=== PATIENT | female | born 1935 | race Caucasian/White ===

== ENCOUNTER 2018-06-13 15:05 | Inpatient (IN) | payer MEDICARE, OTHER ==
[~2018-06-13 15:05] MED LIST: BUPIVACAINE 0.5% (SDV) 30 ML INJ; EPHEDrine SULFATE 50 MG/5 ML SYG; GLYCOPYRROLATE 0.4 MG INJ; NEOSTIGMINE 3 MG/3 ML SYRINGE
[2018-06-13 15:31] LABS: ADD MAN DIFF? NO
[2018-06-13 15:34] LABS: BASOPHILS % 0.4 % (0.0-2.0); EOSINOPHILS # 0.1 10^3/ul (0.0-0.5); EOSINOPHILS % 1.1 % (0.0-7.0); HEMATOCRIT 44.2 % (37.0-47.0); HEMOGLOBIN 15.2 g/dl (12.0-16.0); LYMPHOCYTES # 1.9 10^3/ul (0.8-2.9); LYMPHOCYTES % 33.3 % (15.0-51.0); MEAN CORPUSCULAR HGB CONC 34.4 g/dl (32.0-37.0); MEAN CORPUSCULAR VOLUME 93.1 fl (82.0-101.0); MEAN PLATELET VOLUME 11.5 fl (7.4-10.4); MONOCYTE # 0.3 10^3/ul (0.3-0.9); MONOCYTES % 5.3 % (0.0-11.0); NEUTROPHIL # 3.4 10^3/ul (1.6-7.5); NEUTROPHILS % 59.7 % (39.0-77.0); PLATELET COUNT 148 10^3/UL (140-415); RED BLOOD COUNT 4.75 10^6/ul (4.20-5.40)
[2018-06-13 15:34] LABS: WHITE BLOOD COUNT 5.6 10^3/ul (4.8-10.8)
[2018-06-13] MEDS: KETOROLAC 30 MG INJ IV (15:49)
[2018-06-13] MEDS: ONDANSETRON 4 MG INJ IV (15:49)
[2018-06-13 15:54] LABS: ALANINE AMINOTRANSFERASE 18 IU/L (13-69); ALBUMIN 3.9 g/dl (3.3-4.9); ALBUMIN/GLOBULIN RATIO 1.25; ALKALINE PHOSPHATASE 62 IU/L (42-121); ANION GAP 9 (5-13); ASPARTATE AMINO TRANSFERASE 39 IU/L (15-46); BILIRUBIN,INDIRECT 0.4 mg/dl (0-1.1); BILIRUBIN,TOTAL 0.4 mg/dl (0.2-1.3); BLOOD UREA NITROGEN 21 mg/dl (7-20); CALCIUM 9.2 mg/dl (8.4-10.2); CARBON DIOXIDE 23 mmol/L (21-31); CHLORIDE 104 mmol/L (97-110); CREATININE 0.76 mg/dl (0.44-1.00); GLUCOSE 119 mg/dl (70-220); LIPASE 142 U/L (23-300); POTASSIUM 3.9 mmol/L (3.5-5.1); SODIUM 136 mmol/L (135-144)
[2018-06-13] MEDS ORDERED: morphine 4 MG/ML VIAL (16:14)
[2018-06-13] MEDS: morphine 4 MG/ML VIAL IV ×2 (16:50→17:03)
[2018-06-13] MEDS: SODIUM CHLORIDE 0.9% 1L BAG IV* (17:04)
[2018-06-13] MEDS: PIPER-TAZO 3.375 GM IV (PMX) 100 ML IVPB (17:04)
[2018-06-13] MEDS: DEXTROSE 5%-0.45% NACL 1,000 ML IV (17:20)
[2018-06-13] MEDS ORDERED: NACL 0.9% 3 ML SYG IV (17:30)
[2018-06-13] MEDS ORDERED: morphine 2 MG INJ IV (17:30)
[2018-06-13] MEDS ORDERED: ONDANSETRON 4 MG INJ IV ×3 (17:30→22:00)
[2018-06-13 17:37] LABS: LACTIC ACID 1.6 mmol/L (0.5-2.0)
[2018-06-13] MEDS: PANTOPRAZOLE 40 MG INJ IV (18:00)
[2018-06-13] MEDS: METOPROLOL 5 MG INJ IV (18:00)
[2018-06-13] MEDS ORDERED: ROCURONIUM 50 MG INJ (19:14)
[2018-06-13] MEDS ORDERED: ONDANSETRON 4 MG INJ (19:14)
[2018-06-13] MEDS ORDERED: PROPOFOL 20 ML (19:14)
[2018-06-13] MEDS ORDERED: FENTAnyl 50 MCG/ML VIAL (19:14)
[2018-06-13] MEDS ORDERED: METOCLOPRAMIDE 10 MG INJ (19:14)
[2018-06-13] MEDS ORDERED: BUPIVACAINE 0.25% (MPF) 30 ML INJ (19:15)
[2018-06-13] MEDS ORDERED: ROPIVACAINE 0.5 % 30 ML VIAL (19:15)
[2018-06-13] MEDS ORDERED: DIPHENHYDRAMINE 50 MG INJ IV (19:30)
[2018-06-13] MEDS ORDERED: HYDROmorphONE 1 MG/5 ML IV SYRINGE IV ×3 (19:30)
[2018-06-13] MEDS ORDERED: MEPERIDINE 25 MG INJ IV (19:30)
[2018-06-13] MEDS ORDERED: PHENYLephrine (100 MCG/ML) 5ML SYG ×2 (19:42→21:16)
[2018-06-13] MEDS ORDERED: PIPER-TAZO 3.375 GM IV (PMX) 100 ML IVPB (22:00)
[2018-06-13 22:24] LABS: ADD UMIC YES; UR ASCORBIC ACID NEGATIVE (NEGATIVE); UR BACTERIA FEW /HPF (NONE SEEN); UR BILIRUBIN (Dip) NEGATIVE (NEGATIVE); UR BLOOD (Dip) 2+ mg/dL (NEGATIVE); UR CLARITY CLOUDY (CLEAR); UR COLOR YELLOW (YELLOW); UR GLUCOSE (Dip) NEGATIVE (NEGATIVE); UR KETONES (Dip) NEGATIVE (NEGATIVE); UR LEUKOCYTE ESTERASE (Dip) NEGATIVE Leu/ul (NEGATIVE); UR NITRITE (Dip) NEGATIVE (NEGATIVE); UR RBC 11 /HPF (0-5); UR SPECIFIC GRAVITY (Dip) 1.012 (1.003-1.030); UR TOTAL PROTEIN (Dip) 1+ mg/dl (NEGATIVE); UR UROBILINOGEN (Dip) NEGATIVE (NEGATIVE); UR WBC 5 /HPF (0-5)
[2018-06-13] MEDS: AMPICILLIN/SULB 3 GM/NS (PMX) 100 ML IVPB (23:52)
[2018-06-13] MEDS: D5W-0.45 NACL + KCL 20 MEQ 1,000 ML IV (23:52)
[2018-06-14 01:44] LABS: LACTIC ACID 4.4 mmol/L (0.5-2.0)
[2018-06-14] MEDS: SOD CHLORIDE 0.9% 1,000 ML IV ×2 (02:28→08:02)
[2018-06-14] MEDS: PANTOPRAZOLE 40 MG INJ IV (05:21)
[2018-06-14] MEDS: AMPICILLIN/SULB 3 GM/NS (PMX) 100 ML IVPB ×3 (05:21→16:10)
[2018-06-14] MEDS: LEVOTHYROXINE 75 MCG TAB PO (06:00)
[2018-06-14] MEDS: METOPROLOL 5 MG INJ IV ×4 (06:00→17:25)
[2018-06-14 06:01] LABS: WHITE BLOOD COUNT 6.9 10^3/ul (4.8-10.8)
[2018-06-14 06:01] LABS: ABNORMAL IP MESSAGE 1; HEMATOCRIT 37.2 % (37.0-47.0); HEMOGLOBIN 12.5 g/dl (12.0-16.0); MEAN CORPUSCULAR HEMOGLOBIN 32.2 pg (29.0-33.0); MEAN CORPUSCULAR HGB CONC 33.6 g/dl (32.0-37.0); MEAN CORPUSCULAR VOLUME 95.9 fl (82.0-101.0); PLATELET COUNT 116 10^3/UL (140-415); RED BLOOD COUNT 3.88 10^6/ul (4.20-5.40); RED CELL DISTRIBUTION WIDTH 14.4 % (11.5-14.5)
[2018-06-14 06:27] LABS: ADD MAN DIFF? YES; POSITIVE DIFF @See below
[2018-06-14 06:50] LABS: LACTIC ACID 4.7 mmol/L (0.5-2.0)
[2018-06-14 07:31] LABS: ANION GAP 11 (5-13); BLOOD UREA NITROGEN 17 mg/dl (7-20); CALCIUM 7.6 mg/dl (8.4-10.2); CARBON DIOXIDE 18 mmol/L (21-31); CHLORIDE 109 mmol/L (97-110); CREATININE 0.73 mg/dl (0.44-1.00); GLUCOSE 132 mg/dl (70-220); MAGNESIUM 1.2 mg/dl (1.7-2.5); POTASSIUM 4.1 mmol/L (3.5-5.1); SODIUM 138 mmol/L (135-144)
[2018-06-14] MEDS: D5W-0.45 NACL + KCL 20 MEQ 1,000 ML IV ×3 (07:36→16:10)
[2018-06-14 07:42] LABS: BAND NEUTROPHILS #M 2.5 10^3/ul (0.0-0.6); BAND NEUTROPHILS % (M) 37 % (0-4); BURR CELLS 1+ (0-0); GIANT THROMBO% (M) 1 % (0-0); LYMPHOCYTES #M 0.9 10^3/ul (0.8-2.9); LYMPHOCYTES % (M) 14 % (15-51); METAMYELOCYTES #M 0.2 10^3/ul (0.0-0.0); METAMYELOCYTES %M 4 % (0-0); MONOCYTE #M 0.7 10^3/ul (0.3-0.9); MONOCYTES % (M) 11 % (0-11); PLASMAC%(M) 1 % (0); PLATELET ESTIMATE DECREASED; SEG NEUT #M 2.4 10^3/ul (1.6-7.5); SEGMENTED NEUTROPHILS (M) % 33 % (39-77); SMUDGE%M 27 % (0-0)
[2018-06-14] MEDS: FAMOTIDINE 20 MG INJ IV ×2 (08:02→20:11)
[2018-06-14] MEDS ORDERED: VITAMIN A & D 5 GM OINT PACKET TOP (10:14)
[2018-06-14] MEDS: MAGNESIUM SULFATE 4 GM/100 ML 100 ML IVPB (10:15)
[2018-06-14 10:26] LABS: LACTIC ACID 3.4 mmol/L (0.5-2.0)
[2018-06-14] MEDS: VITAMIN A & D 5 GM OINT PACKET TOP ×2 (10:33→20:16)
[2018-06-14] MEDS: HYDROmorphONE 0.5 MG/0.5 ML SYG IV (12:28)
[2018-06-14] MEDS: PHENOL 1.4% SOLN 180 ML BTL MT ×2 (12:36→14:47)
[2018-06-14 15:29] LABS: LACTIC ACID 2.7 mmol/L (0.5-2.0)
[2018-06-14] MEDS: ACETAMINOPHEN 650 MG SUPP PR (19:28)
[2018-06-14] MEDS: LORAZEPAM 2 MG INJ IV (19:50)
[2018-06-14 21:45] LABS: LACTIC ACID 2.4 mmol/L (0.5-2.0)
[2018-06-14] MEDS: SOD CHLORIDE 0.9% 500 ML IV (23:55)
[2018-06-15] MEDS: METOPROLOL 5 MG INJ IV ×4 (00:22→18:41)
[2018-06-15] MEDS: D5W-0.45 NACL + KCL 20 MEQ 1,000 ML IV (00:23)
[2018-06-15] MEDS: PANTOPRAZOLE 40 MG INJ IV ×2 (05:18→21:07)
[2018-06-15] MEDS: LEVOTHYROXINE 75 MCG TAB PO (05:24)
[2018-06-15 05:50] LABS: ABNORMAL IP MESSAGE 1; HEMATOCRIT 35.6 % (37.0-47.0); HEMOGLOBIN 12.3 g/dl (12.0-16.0); MEAN CORPUSCULAR HEMOGLOBIN 32.6 pg (29.0-33.0); MEAN CORPUSCULAR HGB CONC 34.6 g/dl (32.0-37.0); MEAN CORPUSCULAR VOLUME 94.4 fl (82.0-101.0); MEAN PLATELET VOLUME 12.4 fl (7.4-10.4); PLATELET COUNT 99 10^3/UL (140-415); RED BLOOD COUNT 3.77 10^6/ul (4.20-5.40); RED CELL DISTRIBUTION WIDTH 14.8 % (11.5-14.5)
[2018-06-15 05:50] LABS: WHITE BLOOD COUNT 15.6 10^3/ul (4.8-10.8)
[2018-06-15 05:57] LABS: ADD MAN DIFF? YES; POSITIVE DIFF @See below
[2018-06-15 06:16] LABS: LACTIC ACID 1.7 mmol/L (0.5-2.0)
[2018-06-15 06:34] LABS: ALBUMIN 2.6 g/dl (3.3-4.9); ANION GAP 3 (5-13); BLOOD UREA NITROGEN 20 mg/dl (7-20); CALCIUM 7.8 mg/dl (8.4-10.2); CARBON DIOXIDE 23 mmol/L (21-31); CHLORIDE 112 mmol/L (97-110); CREATININE 0.72 mg/dl (0.44-1.00); GLUCOSE 111 mg/dl (70-220); MAGNESIUM 2.6 mg/dl (1.7-2.5); PHOSPHORUS 2.5 mg/dl (2.5-4.9); POTASSIUM 3.7 mmol/L (3.5-5.1); SODIUM 138 mmol/L (135-144)
[2018-06-15] MEDS: FAMOTIDINE 20 MG INJ IV ×2 (08:57→21:07)
[2018-06-15] MEDS: VITAMIN A & D 5 GM OINT PACKET TOP ×2 (08:57→21:09)
[2018-06-15 09:06] LABS: BAND NEUTROPHILS #M 4.5 10^3/ul (0.0-0.6); BAND NEUTROPHILS % (M) 29 % (0-4); BURR CELLS 1+ (0-0); GIANT THROMBO% (M) 10 % (0-0); LYMPHOCYTES #M 2.1 10^3/ul (0.8-2.9); LYMPHOCYTES % (M) 14 % (15-51); MONOCYTE #M 0.4 10^3/ul (0.3-0.9); MONOCYTES % (M) 3 % (0-11); PLATELET ESTIMATE DECREASED; POIKILOCYTOSIS 2+ (0-0); REACTIVE LYMPHOCYTES #M 0.1 10^3/ul (0.0-0.0); REACTIVE LYMPHOCYTES% (M) 1 % (0-0); SEGMENTED NEUTROPHILS (M) % 53 % (39-77); SMUDGE%M 17 % (0-0)
[2018-06-15] MEDS: PHENOL 1.4% SOLN 180 ML BTL MT (10:08)
[2018-06-15] MEDS: DEXTROSE 5%-0.45% NACL 1,000 ML IV ×2 (11:21→21:07)
[2018-06-15] MEDS: PIPER-TAZO 3.375 GM IV (PMX) 100 ML IVPB ×4 (11:26→22:00)
[2018-06-15] MEDS ORDERED: LORAZEPAM 2 MG INJ IV (11:30)
[2018-06-15] MEDS ORDERED: PIPER-TAZO 3.375 GM IV (PMX) 100 ML IVPB (12:00)
[2018-06-15] MEDS: LEVOTHYROXINE 100 MCG VIAL IV (12:29)
[2018-06-15] MEDS: SUCRALFATE (100 MG/ML) 10ML CUP PO ×3 (14:00→21:09)
[2018-06-15 17:25] LABS: ADD UMIC YES; UR ASCORBIC ACID NEGATIVE (NEGATIVE); UR BACTERIA FEW /HPF (NONE SEEN); UR BILIRUBIN (Dip) NEGATIVE (NEGATIVE); UR BLOOD (Dip) 2+ mg/dL (NEGATIVE); UR CLARITY SLIGHTLY CLOUDY (CLEAR); UR COLOR YELLOW (YELLOW); UR GLUCOSE (Dip) NEGATIVE (NEGATIVE); UR KETONES (Dip) NEGATIVE (NEGATIVE); UR LEUKOCYTE ESTERASE (Dip) NEGATIVE Leu/ul (NEGATIVE); UR MUCUS FEW /HPF (NONE SEEN); UR NITRITE (Dip) NEGATIVE (NEGATIVE); UR RBC 1 /HPF (0-5); UR SPECIFIC GRAVITY (Dip) 1.018 (1.003-1.030); UR TOTAL PROTEIN (Dip) NEGATIVE (NEGATIVE); UR UROBILINOGEN (Dip) NEGATIVE (NEGATIVE); UR WBC 1 /HPF (0-5)
[2018-06-15] MEDS: ACETAMINOPHEN 650 MG SUPP PR (21:09)
[2018-06-15] MEDS: OLANZAPINE 10 MG VIAL IM (21:20)
[2018-06-16] MEDS: METOPROLOL 5 MG INJ IV ×4 (00:57→17:46)
[2018-06-16] MEDS ORDERED: HALOPERIDOL 5 MG INJ (02:20)
[2018-06-16] MEDS: HALOPERIDOL 5 MG INJ IM ×2 (02:47→23:30)
[2018-06-16] MEDS: LORAZEPAM 2 MG INJ IV ×2 (03:13→17:46)
[2018-06-16] MEDS: IPRATROPIUM (NEB) 0.5 MG/2.5 ML AMP HHN (04:12)
[2018-06-16] MEDS: LEVALBUTEROL (NEB) 0.63 MG/3 ML AMP HHN (04:12)
[2018-06-16] MEDS: FUROSEMIDE 20 MG INJ IV ×2 (05:07→17:46)
[2018-06-16] MEDS: PIPER-TAZO 3.375 GM IV (PMX) 100 ML IVPB ×3 (06:23→22:31)
[2018-06-16] MEDS: LEVOTHYROXINE 100 MCG VIAL IV (06:23)
[2018-06-16] MEDS: DEXTROSE 5%-0.45% NACL 1,000 ML IV ×2 (06:50→18:34)
[2018-06-16 09:09] LABS: WHITE BLOOD COUNT 16.4 10^3/ul (4.8-10.8)
[2018-06-16 09:09] LABS: HEMATOCRIT 32.6 % (37.0-47.0); HEMOGLOBIN 11.5 g/dl (12.0-16.0); MEAN CORPUSCULAR HEMOGLOBIN 32.4 pg (29.0-33.0); MEAN CORPUSCULAR HGB CONC 35.3 g/dl (32.0-37.0); MEAN CORPUSCULAR VOLUME 91.8 fl (82.0-101.0); MEAN PLATELET VOLUME 12.4 fl (7.4-10.4); PLATELET COUNT 100 10^3/UL (140-415); RED BLOOD COUNT 3.55 10^6/ul (4.20-5.40); RED CELL DISTRIBUTION WIDTH 14.3 % (11.5-14.5)
[2018-06-16 09:11] LABS: POSITIVE DIFF @See below
[2018-06-16 09:50] LABS: ANION GAP 9 (5-13); BLOOD UREA NITROGEN 12 mg/dl (7-20); CALCIUM 8.3 mg/dl (8.4-10.2); CARBON DIOXIDE 25 mmol/L (21-31); CHLORIDE 105 mmol/L (97-110); GLUCOSE 88 mg/dl (70-220); MAGNESIUM 1.8 mg/dl (1.7-2.5); PHOSPHORUS 1.3 mg/dl (2.5-4.9); SODIUM 139 mmol/L (135-144)
[2018-06-16 10:04] LABS: POTASSIUM 2.8 mmol/L (3.5-5.1)
[2018-06-16 10:09] LABS: ADD MAN DIFF? YES
[2018-06-16 10:10] LABS: BAND NEUTROPHILS #M 5.7 10^3/ul (0.0-0.6); BAND NEUTROPHILS % (M) 35 % (0-4); LYMPHOCYTES #M 0.4 10^3/ul (0.8-2.9); LYMPHOCYTES % (M) 3 % (15-51); MONOCYTE #M 0.4 10^3/ul (0.3-0.9); MONOCYTES % (M) 3 % (0-11); PLATELET ESTIMATE DECREASED; REACTIVE LYMPHOCYTES #M 0.4 10^3/ul (0.0-0.0); REACTIVE LYMPHOCYTES% (M) 3 % (0-0); SEG NEUT #M 10.1 10^3/ul (1.6-7.5); SEGMENTED NEUTROPHILS (M) % 56 % (39-77); SMUDGE%M 6 % (0-0)
[2018-06-16] MEDS: PANTOPRAZOLE 40 MG INJ IV ×2 (10:49→20:36)
[2018-06-16] MEDS: FAMOTIDINE 20 MG INJ IV ×2 (10:49→20:36)
[2018-06-16] MEDS: SUCRALFATE (100 MG/ML) 10ML CUP PO ×4 (10:54→20:36)
[2018-06-16 10:55] LABS: B-TYPE NATRIURETIC PEPTIDE 8260 PG/ML (0-450)
[2018-06-16] MEDS: VITAMIN A & D 5 GM OINT PACKET TOP ×2 (10:55→20:36)
[2018-06-16] MEDS: POTASSIUM CHLORIDE 100 ML IVPB ×4 (12:23→20:35)
[2018-06-16] MEDS: SODIUM PHOSPHATE 20 MEQ in SOD CHLORIDE 0.9% 250 ML IVPB (13:51)
[2018-06-17] MEDS: HALOPERIDOL 5 MG INJ IM (01:59)
[2018-06-17] MEDS: METOPROLOL 5 MG INJ IV ×5 (02:28→15:27)
[2018-06-17] MEDS: LEVOTHYROXINE 100 MCG VIAL IV (05:32)
[2018-06-17] MEDS: PIPER-TAZO 3.375 GM IV (PMX) 100 ML IVPB ×3 (05:33→21:18)
[2018-06-17 05:54] LABS: ADD MAN DIFF? NO
[2018-06-17 05:59] LABS: WHITE BLOOD COUNT 14.2 10^3/ul (4.8-10.8)
[2018-06-17 06:00] LABS: BASOPHIL # 0.1 10^3/ul (0.0-0.1); BASOPHILS % 0.5 % (0.0-2.0); EOSINOPHILS # 0.4 10^3/ul (0.0-0.5); HEMOGLOBIN 11.3 g/dl (12.0-16.0); LYMPHOCYTES # 1.6 10^3/ul (0.8-2.9); LYMPHOCYTES % 10.9 % (15.0-51.0); MEAN CORPUSCULAR HEMOGLOBIN 32.4 pg (29.0-33.0); MEAN CORPUSCULAR HGB CONC 35.3 g/dl (32.0-37.0); MEAN CORPUSCULAR VOLUME 91.7 fl (82.0-101.0); MEAN PLATELET VOLUME 12.2 fl (7.4-10.4); MONOCYTE # 1.3 10^3/ul (0.3-0.9); MONOCYTES % 9.4 % (0.0-11.0); NEUTROPHIL # 10.8 10^3/ul (1.6-7.5); NEUTROPHILS % 75.7 % (39.0-77.0); PLATELET COUNT 111 10^3/UL (140-415); RED BLOOD COUNT 3.49 10^6/ul (4.20-5.40); RED CELL DISTRIBUTION WIDTH 14.2 % (11.5-14.5)
[2018-06-17 07:00] LABS: ANION GAP 7 (5-13); BLOOD UREA NITROGEN 13 mg/dl (7-20); CALCIUM 8.2 mg/dl (8.4-10.2); CARBON DIOXIDE 32 mmol/L (21-31); CHLORIDE 100 mmol/L (97-110); CREATININE 0.68 mg/dl (0.44-1.00); GLUCOSE 73 mg/dl (70-220); MAGNESIUM 1.6 mg/dl (1.7-2.5); PHOSPHORUS 2.6 mg/dl (2.5-4.9); SODIUM 139 mmol/L (135-144)
[2018-06-17] MEDS: SUCRALFATE (100 MG/ML) 10ML CUP PO ×4 (09:00→21:06)
[2018-06-17] MEDS: PANTOPRAZOLE 40 MG INJ IV ×2 (09:19→21:06)
[2018-06-17] MEDS: FUROSEMIDE 20 MG INJ IV (09:20)
[2018-06-17] MEDS: FAMOTIDINE 20 MG INJ IV ×2 (09:21→21:06)
[2018-06-17] MEDS: MAGNESIUM SULFATE 2 GM/50 ML 50 ML IVPB (09:22)
[2018-06-17] MEDS: VITAMIN A & D 5 GM OINT PACKET TOP ×2 (09:34→21:07)
[2018-06-17] MEDS: POTASSIUM CHLORIDE 100 ML IVPB ×3 (12:00→22:01)
[2018-06-17] MEDS: DEXTROSE 5%-0.45% NACL 1,000 ML IV (14:48)
[2018-06-17] MEDS: METOPROLOL 25 MG TAB PO (21:06)
[2018-06-17] MEDS: QUETIAPINE 25 MG TAB PO (21:08)
[2018-06-18] MEDS: POTASSIUM CHLORIDE 100 ML IVPB (01:11)
[2018-06-18] MEDS: LEVOTHYROXINE 100 MCG VIAL IV (05:13)
[2018-06-18] MEDS: METOPROLOL 25 MG TAB PO ×2 (05:15→13:20)
[2018-06-18] MEDS: PIPER-TAZO 3.375 GM IV (PMX) 100 ML IVPB (05:16)
[2018-06-18] MEDS: DEXTROSE 5%-0.45% NACL 1,000 ML IV ×2 (05:31→10:10)
[2018-06-18 08:06] LABS: ADD MAN DIFF? NO
[2018-06-18 08:11] LABS: WHITE BLOOD COUNT 9.3 10^3/ul (4.8-10.8)
[2018-06-18 08:11] LABS: BASOPHIL # 0.1 10^3/ul (0.0-0.1); BASOPHILS % 0.6 % (0.0-2.0); EOSINOPHILS # 0.6 10^3/ul (0.0-0.5); EOSINOPHILS % 6.4 % (0.0-7.0); HEMOGLOBIN 13.6 g/dl (12.0-16.0); LYMPHOCYTES # 1.7 10^3/ul (0.8-2.9); LYMPHOCYTES % 17.9 % (15.0-51.0); MEAN CORPUSCULAR HEMOGLOBIN 32.5 pg (29.0-33.0); MEAN CORPUSCULAR HGB CONC 35.8 g/dl (32.0-37.0); MEAN CORPUSCULAR VOLUME 90.9 fl (82.0-101.0); MEAN PLATELET VOLUME 11.9 fl (7.4-10.4); MONOCYTE # 1.2 10^3/ul (0.3-0.9); MONOCYTES % 13.3 % (0.0-11.0); NEUTROPHIL # 5.7 10^3/ul (1.6-7.5); NEUTROPHILS % 61.2 % (39.0-77.0); PLATELET COUNT 152 10^3/UL (140-415); RED BLOOD COUNT 4.18 10^6/ul (4.20-5.40)
[2018-06-18 08:33] LABS: ANION GAP 8 (5-13); BLOOD UREA NITROGEN 11 mg/dl (7-20); CALCIUM 8.5 mg/dl (8.4-10.2); CARBON DIOXIDE 31 mmol/L (21-31); CHLORIDE 98 mmol/L (97-110); CREATININE 0.61 mg/dl (0.44-1.00); GLUCOSE 103 mg/dl (70-220); MAGNESIUM 1.9 mg/dl (1.7-2.5); PHOSPHORUS 2.2 mg/dl (2.5-4.9); POTASSIUM 3.2 mmol/L (3.5-5.1); SODIUM 137 mmol/L (135-144)
[2018-06-18] MEDS: SUCRALFATE (100 MG/ML) 10ML CUP PO ×4 (08:57→21:04)
[2018-06-18] MEDS: FUROSEMIDE 20 MG TAB PO (08:57)
[2018-06-18] MEDS: PANTOPRAZOLE 40 MG INJ IV ×2 (08:58→21:05)
[2018-06-18] MEDS: FAMOTIDINE 20 MG INJ IV ×2 (08:58→21:05)
[2018-06-18] MEDS: VITAMIN A & D 5 GM OINT PACKET TOP ×2 (08:58→21:04)
[2018-06-18] MEDS: POTASSIUM CHLORIDE (SR) 20 MEQ TAB PO ×2 (10:28→13:20)
[2018-06-18] MEDS: LEVOFLOXACIN 500 MG TAB PO (13:20)
[2018-06-18] MEDS ORDERED: hydrALAzine 20 MG INJ IV (21:00)
[2018-06-18] MEDS: QUETIAPINE 25 MG TAB PO (21:02)
[2018-06-18] MEDS: LISINOPRIL 10 MG TAB PO (21:03)
[2018-06-18] MEDS: METOPROLOL 50 MG TAB PO (21:03)
[2018-06-19] MEDS: LEVOTHYROXINE 100 MCG VIAL IV (05:40)
[2018-06-19] MEDS: LEVOFLOXACIN 500 MG TAB PO (05:42)
[2018-06-19] MEDS: METOPROLOL 50 MG TAB PO ×2 (05:42→13:38)
[2018-06-19] MEDS: SUCRALFATE (100 MG/ML) 10ML CUP PO ×2 (08:49→13:37)
[2018-06-19] MEDS: PANTOPRAZOLE 40 MG INJ IV (08:49)
[2018-06-19] MEDS: FAMOTIDINE 20 MG INJ IV (08:49)
[2018-06-19] MEDS: VITAMIN A & D 5 GM OINT PACKET TOP (08:50)
[2018-06-19] MEDS: FUROSEMIDE 20 MG TAB PO (08:50)
[2018-06-19] MEDS: LISINOPRIL 10 MG TAB PO (08:50)
[2018-06-19 12:13] LABS: ADD MAN DIFF? NO
[2018-06-19 12:15] LABS: BASOPHIL # 0.1 10^3/ul (0.0-0.1); BASOPHILS % 0.6 % (0.0-2.0); EOSINOPHILS # 0.3 10^3/ul (0.0-0.5); EOSINOPHILS % 3.3 % (0.0-7.0); HEMOGLOBIN 15.6 g/dl (12.0-16.0); MEAN CORPUSCULAR HEMOGLOBIN 31.6 pg (29.0-33.0); MEAN CORPUSCULAR HGB CONC 34.7 g/dl (32.0-37.0); MEAN CORPUSCULAR VOLUME 91.1 fl (82.0-101.0); MEAN PLATELET VOLUME 11.3 fl (7.4-10.4); MONOCYTE # 1.1 10^3/ul (0.3-0.9); MONOCYTES % 10.9 % (0.0-11.0); NEUTROPHIL # 6.4 10^3/ul (1.6-7.5); PLATELET COUNT 198 10^3/UL (140-415); RED BLOOD COUNT 4.94 10^6/ul (4.20-5.40); RED CELL DISTRIBUTION WIDTH 14.5 % (11.5-14.5)
[2018-06-19 12:15] LABS: WHITE BLOOD COUNT 10.1 10^3/ul (4.8-10.8)
[2018-06-19 12:36] LABS: ALANINE AMINOTRANSFERASE 17 IU/L (13-69); ALBUMIN 4.1 g/dl (3.3-4.9); ALBUMIN/GLOBULIN RATIO 1.36; ALKALINE PHOSPHATASE 89 IU/L (42-121); ANION GAP 13 (5-13); ASPARTATE AMINO TRANSFERASE 32 IU/L (15-46); BILIRUBIN,INDIRECT 0.5 mg/dl (0-1.1); BILIRUBIN,TOTAL 0.5 mg/dl (0.2-1.3); BLOOD UREA NITROGEN 16 mg/dl (7-20); CALCIUM 9.7 mg/dl (8.4-10.2); CARBON DIOXIDE 31 mmol/L (21-31); CHLORIDE 96 mmol/L (97-110); CREATININE 0.82 mg/dl (0.44-1.00); GLUCOSE 96 mg/dl (70-220); MAGNESIUM 1.8 mg/dl (1.7-2.5); POTASSIUM 3.5 mmol/L (3.5-5.1); SODIUM 140 mmol/L (135-144); TOTAL PROTEIN 7.1 g/dl (6.1-8.1)
[2018-06-20] MEDS ORDERED: LEVOTHYROXINE 75 MCG TAB PO (06:00)
== END 2018-06-19 15:15 | disposition home or self-care (01) | DRG 326 ==
LOC: TEL 06-17 11:11 → E/R 15:05 → TEL 06-17 22:01 → REC 17:09 → TEL 22:59
PROC: 0DU647Z Supplement Stomach with Autologous Tissue Substitute, Percutaneous Endoscopic Approach (ICD-10-PCS; principal; 2018-06-13 19:00)
DX: K25.5 Chronic or unspecified gastric ulcer with perforation (principal); K65.9 Peritonitis, unspecified; I50.31 Acute diastolic (congestive) heart failure; G93.40 Encephalopathy, unspecified; I47.1 Supraventricular tachycardia; E03.9 Hypothyroidism, unspecified
CPT/HCPCS: 36415; 70450; 71045; 74176; 80048; 80053; 80069; 81001; 83605; 83690; 83735; 83880; 84100; 84443; 85025; 87040; 87086; 92610; 93005; 93306; 94664; 96374; 96375; 96376; 97110; 97116; 97161; 97166; 97530; 97535; 99285-25